=== PATIENT | male | born 1955 | race Caucasian/White ===

== ENCOUNTER 2018-06-11 11:11 | Emergency (ER) | payer OTHER, BC ==
--- NOTE | 2018-06-11 12:02 | EDM.PDOC ---
ED HPI GENERAL MEDICAL PROBLEM - General Chief Complaint: Laceration Stated Complaint: RIGHT PINKY LAC Time Seen by Provider: 06/11/18 11:36 Source of Information: Reports: Patient History Limitations: Reports: No Limitations - History of Present Illness INITIAL COMMENTS - FREE TEXT/NARRATIVE: 63-year-old male presents for evaluation and treatment of a laceration to the right volar distal pinky. Injury occurred prior to arrival in the ER. Patient reports that his hand was kicked by a bull and it was pinned between a the bull and a gate. He has a laceration to the right distal fifth finger pad. He has good range of motion and denies any numbness or tingling. Unsure of last tetanus. Onset: Today Location: Reports: Upper Extremity, Right Right Hand Pain Score (Numeric/FACES): 3 - Related Data Allergies Allergy/AdvReac Type Severity Reaction Status Date / Time No Known Allergies Allergy Verified 06/11/18 11:20 Home Meds: Home Meds Aspirin 81 mg PO DAILY 06/11/18 [History] Ciprofloxacin HCl [Cipro] 500 mg PO BID #14 tablet 06/11/18 [Rx] Doxycycline [Vibramycin] 100 mg PO BID #20 cap 06/11/18 [Rx] Finasteride [Proscar] 5 mg PO DAILY 06/11/18 [History] metFORMIN [Glucophage XR] 500 mg PO DAILY 06/11/18 [History] Past Medical History HEENT History: Reports: Impaired Vision Endocrine/Metabolic History: Reports: Diabetes, Type II Social & Family History - Tobacco Use Smoking Status *Q: Never Smoker - Caffeine Use Caffeine Use: Reports: Coffee - Recreational Drug Use Recreational Drug Use: No ED ROS GENERAL - Review of Systems Review Of Systems: See Below Skin: Reports: Wound (right 5th finger) Neurological: Denies: Numbness, Tingling ED EXAM, SKIN/RASH Exam: See Below Exam Limited By: No Limitations General Appearance: Alert, WD/WN, No Apparent Distress Nose: Normal Inspection Throat/Mouth: Normal Inspection, Normal Voice, No Airway Compromise Respiratory/Chest: No Respiratory Distress Cardiovascular: Normal Peripheral Pulses Peripheral Pulses: 2+: Radial (L) Neurological: Alert, Oriented, Normal Cognition Psychiatric: Normal Affect, Normal Mood Skin: Warm, Dry, Normal Color, Wound/Incision (3cm subcutantous laceration to the right hand distal 5th finger and a 2 1cm laceration to the right distal volar finger over the DIP ) Location, Skin: Upper Extremity, Right Associated features: Swelling ED SKIN PROCEDURES - Laceration/Wound Repair Right Distal Digit - 5th (Baby) Lac/Wound length In cm: 3 Appearance: Subcutaneous, Irregular Distal NVT: Neuro & Vascular Intact, No Tendon Injury Anesthetic Type: Digital Local Anesthesia - Lidocaine (Xylocaine): 1% Plain Local Anesthetic Volume: 5cc Skin Prep: Chlorhexidine (Hibiciens), Saline, Sterile Drape Saline Irrigation (cc's): 200 Exploration/Debridement/Repair: Wound Explored, No Foreign Material Found Closed with: Sutures Suture Size: 4-0 # of Sutures: 20 Suture Type: Nylon, Interrupted, Simple Sterile Dressing Applied: Nurse Tetanus Status Addressed: Yes Complications: No Course - Vital Signs Last Recorded V/S: Last Vital Signs Temp 97.8 F 06/11/18 11:18 Pulse 79 06/11/18 11:18 Resp 16 06/11/18 11:18 BP 154/84 H 06/11/18 11:18 Pulse Ox 98 06/11/18 11:18 - Orders/Labs/Meds Orders: Active Orders 24 hr Category Date Time Status Vaccines to be Administered [RC] PER UNIT ROUTINE Care 06/11/18 11:48 Active Meds: Medications Discontinued Medications Generic Name Dose Route Start Last Admin Trade Name Leonardo PRN Reason Stop Dose Admin Cefazolin Sodium 1,000 mg 06/11/18 12:36 06/11/18 14:15 Ancef IM 06/11/18 12:37 Not Given ONETIME ONE Cefazolin Sodium 1 gm 06/11/18 13:04 06/11/18 14:11 Ancef IM 06/11/18 13:05 1 gm ONETIME STA Administration Diphtheria/Tetanus/Acell Pertussis 0.5 ml 06/11/18 11:48 06/11/18 12:20 Adacel IM 06/11/18 11:49 0.5 ml .ONCE ONE Administration Lidocaine HCl 50 ml 06/11/18 11:49 06/11/18 12:25 Xylocaine 1% INJECT 06/11/18 11:50 50 ml ONETIME ONE Administration - Radiology Interpretation Free Text/Narrative:: xray of the right fifth finger shows a nondisplaced fracture of the distal phalnex. - Re-Assessments/Exams Free Text/Narrative Re-Assessment/Exam: 06/11/18 13:54 20 sutures placed to the right hand fifth finger. Patient tolerated well. Discussed with Dr. Richard, recommended giving Ancef here in the ED. Discharge and with doxycycline and ciprofloxacin. Given 1 g IM Ancef and start Ciprofloxin Doxy to cover for atypical bacteria seen with livestock. Tubegauz and will form splints replaced by nursing staff. Discharge instructions as documented. Departure - Departure Time of Disposition: 13:54 Disposition: Home, Self-Care 01 Condition: Fair Clinical Impression: Laceration, Fracture - Discharge Information *PRESCRIPTION DRUG MONITORING PROGRAM REVIEWED*: No *COPY OF PRESCRIPTION DRUG MONITORING REPORT IN PATIENT DELORES: No Prescriptions: Ciprofloxacin HCl [Cipro] 500 mg PO BID #14 tablet Doxycycline [Vibramycin] 100 mg PO BID #20 cap Instructions: Laceration Care, Adult Referrals: Silvana Gaytan PA [Primary Care Provider] - Harmeet Foreman MD [Physician] - Forms: ED Department Discharge Additional Instructions: wash the wound with gentle soap and water twice a day. Doxycycline 1 Twice a day for 10 days. ciprofloxacin 1 cap Twice a day for 7 days. Take these medications with food. Recommend a probiotic. These are available [id number]. Keep the wound covered. Wear the splint at all times. Have the sutures removed in about 10 days. the [facility] clinic located on the side of the hospital is open 8 AM to 5 PM Friday through Friday to remove the sutures for free. Call [phone] to schedule the provider there. Follow-up with Dr. Foreman within 2 weeks. Call [phone] to schedule with him. [id number] Tylenol or Motrin as needed for pain relief. Please return to ER if her symptoms change or worsen. - My Orders Last 24 Hours: My Active Orders 06/11/18 11:48 Vaccines to be Administered [RC] PER UNIT ROUTINE - Assessment/Plan Last 24 Hours: My Active Orders 06/11/18 11:48 Vaccines to be Administered [RC] PER UNIT ROUTINE
[2018-06-11] MEDS: Diphtheria,Pertussis(Acell),Tetanus Vaccine 0.5 ML SDV IM ONE (12:20)
[2018-06-11] MEDS: Lidocaine 1% 50 ML MDV INJECT ONE (12:25)
[2018-06-11] MEDS: ceFAZolin 1 GM Vial IM STA (14:11)
[2018-06-11] MEDS: ceFAZolin 1,000 MG VIAL IM ONE (14:15)
--- NOTE | 2018-06-11 15:09 | CR ---
Right fifth finger: Four view centered to the right fifth finger were obtained. Soft tissue injury is seen. Mild degenerative change is noted within the DIP joint. Small amount of debris is seen within the soft tissues of the distal fifth finger and please correlate if this is within the soft tissue wound or outside the skin. No acute fracture or other abnormality is seen. Impression: 1. Soft tissue injury with radiopacities as described above. 2. No acute bony abnormality is appreciated. Diagnostic code #3
== END 2018-06-11 14:30 | disposition home or self-care (01) ==
LOC: JD.ED 11:11
DX: S62.666A Nondisplaced fracture of distal phalanx of right little finger, initial encounter for closed fracture (principal); S61.216A Laceration without foreign body of right little finger without damage to nail, initial encounter; Z79.82 Long term (current) use of aspirin; Z79.899 Other long term (current) drug therapy; Z79.84 Long term (current) use of oral hypoglycemic drugs; Z23 Encounter for immunization; W55.22XA Struck by cow, initial encounter
CPT/HCPCS: 12002; 73140-26-F9; 73140-F9; 90471; 90715; 96372; 99283-25; J0690

== ENCOUNTER 2021-09-18 08:22 | Emergency (ER) | payer BC, MEDICARE, OTHER ==
[2021-09-18] MEDS ORDERED: HYDROmorphone 0.5 MG/0.5 ML Syringe IVPUSH ONE ×2 (08:45)
--- NOTE | 2021-09-18 08:45 | EDM.PDOC ---
ED HPI GENERAL MEDICAL PROBLEM - General Chief Complaint: Upper Extremity Injury/Pain Stated Complaint: SANTANA AMB Time Seen by Provider: 09/18/21 08:40 - History of Present Illness INITIAL COMMENTS - FREE TEXT/NARRATIVE: 66-year-old male presents the emergency room with a right upper extremity injury. 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 Patient did not hit his head there was no loss of consciousness. Patient denies any other injury with this most unfortunate event. Patient has a significant history of congestive heart failure but this is not causing him any problems at this point. Right Upper Arm Pain Score (Numeric/FACES): 3 - Related Data Allergies Allergy/AdvReac Type Severity Reaction Status Date / Time No Known Allergies Allergy Verified 06/11/18 11:20 Home Meds: Home Meds Aspirin 81 mg PO DAILY 06/11/18 [History] Finasteride [Proscar] 5 mg PO DAILY 06/11/18 [History] metFORMIN [Glucophage XR] 500 mg PO DAILY 06/11/18 [History] Hydrocodone/Acetaminophen [HYDROcodone-Acetaminophen 5-325 MG] 1 - 2 each PO Q6H PRN #20 tab 09/18/21 [Rx] Rosuvastatin [Crestor] 0 mg PO DAILY 09/18/21 [History] Sacubitril/Valsartan [Entresto 24 mg-26 mg Tablet] 1 tab PO BID 09/18/21 [History] Tamsulosin HCl [Flomax] 0.4 mg PO DAILY 09/18/21 [History] carvediloL [Carvedilol] 3.125 mg PO BID 09/18/21 [History] Past Medical History HEENT History: Reports: Impaired Vision Endocrine/Metabolic History: Reports: Diabetes, Type II Social & Family History - Caffeine Use Caffeine Use: Reports: Coffee ED ROS GENERAL - Review of Systems Review Of Systems: See Below Constitutional: Reports: No Symptoms HEENT: Reports: No Symptoms Respiratory: Reports: No Symptoms Cardiovascular: Reports: No Symptoms GI/Abdominal: Reports: No Symptoms Musculoskeletal: Reports: Other (Shoulder pain) Neurological: Reports: No Symptoms ED EXAM, GENERAL - Physical Exam Exam: See Below Exam Limited By: No Limitations General Appearance: Alert, Other (He is noticeably uncomfortable) Head: Atraumatic, Normocephalic Neck: Normal Inspection, Supple, Non-Tender, Full Range of Motion. No: Lymphadenopathy (L), Lymphadenopathy (R), Tender Lateral, Tender Midline Respiratory/Chest: No Respiratory Distress, Lungs Clear, Normal Breath Sounds (Current they will), Chest Non-Tender Cardiovascular: Regular Rate, Rhythm (Some of them are male), No Edema, No Murmur GI/Abdominal: Normal Bowel Sounds, Soft, Non-Tender, Pelvis Stable Back Exam: Normal Inspection. No: CVA Tenderness (L), CVA Tenderness (R) Extremities: Other (Extremity is nontender both lower extremities are normal) Neurological: Alert, Oriented, Normal Cognition Skin Exam: Warm, Dry, Intact Course - Vital Signs Last Recorded V/S: Last Vital Signs Temp 36.2 C 09/18/21 08:25 Pulse 64 09/18/21 12:18 Resp 15 09/18/21 12:18 BP 96/49 L 09/18/21 12:18 Pulse Ox 100 09/18/21 12:18 - Orders/Labs/Meds Orders: Active Orders 24 hr Category Date Time Status Shoulder 1V Rt [CR] Routine Exams 09/18/21 Taken Meds: Medications Discontinued Medications Generic Name Dose Route Start Last Admin Trade Name Freq PRN Reason Stop Dose Admin Fentanyl 100 mcg 09/18/21 11:20 09/18/21 11:20 Fentanyl 100 Mcg/2 Ml Sdv IVPUSH 09/18/21 11:21 50 mcg ONETIME ONE Administration Fentanyl 50 mcg 09/18/21 12:23 09/18/21 12:05 Fentanyl 100 Mcg/2 Ml Sdv IVPUSH 09/18/21 12:24 50 mcg ONETIME ONE Administration Hydromorphone HCl 0.5 mg 09/18/21 08:45 09/18/21 08:50 Hydromorphone 0.5 Mg/0.5 Ml Syringe IVPUSH 09/18/21 08:46 0.5 mg ONETIME ONE Administration Hydromorphone HCl 0.5 mg 09/18/21 08:45 09/18/21 09:03 Hydromorphone 0.5 Mg/0.5 Ml Syringe IVPUSH 09/18/21 08:46 0.5 mg ONETIME ONE Administration Propofol 100 mg 09/18/21 11:53 09/18/21 12:10 Propofol 200 Mg/20 Ml Sdv IVPUSH 09/18/21 11:54 200 mg ONETIME ONE Administration - Re-Assessments/Exams Free Text/Narrative Re-Assessment/Exam: 09/18/21 12:44 Careful screening exam does not show any other areas of tenderness. He has some numbness in his right hand but this is a chronic come and go state as he has chronic neck problems. Palpation of the upper extremity is tender in the vicinity of the mid humerus on up to the shoulder. He has some sort of deformity with his body habitus is hard to know if this is a midshaft injury to the humerus or shoulder injury. X-rays of the shoulder show an anterior dislocated shoulder there is no obvious humerus fracture or forearm fracture. The patient was very cooperative I attempted external rotation and could not get the patient to fully relax. The procedure was assisted with Dr. Mccain and who administered propofol in addition to the fentanyl. Satisfactory relaxation and sedation was achieved and using distraction and external rotation the shoulder popped back into place x- rays were obtained which show good placement of the shoulder. 09/18/21 12:49 Just checked on the patient he is feeling better he is resting comfortably the numbness that he had in his hand has resolved. 09/18/21 13:40 Patient is doing really well at this time we will discharge home Departure - Departure Time of Disposition: 13:40 Disposition: Home, Self-Care 01 Clinical Impression: Dislocation of shoulder, anterior, right, closed - Discharge Information Referrals: PCP,None [Primary Care Provider] - Harmeet Foreman MD [Physician] - Forms: ED Department Discharge Additional Instructions: Return to the emergency room with any questions problems or worsening symptoms if you develop numbness that does not get better with repositioning your arm return to the emergency room. Wear the sling at all times. Follow-up with Dr. Foreman, the orthopedic surgeon here in [facility] next week. I have sent a prescription to the [place] pharmacy for hydrocodone. Use this only if needed for pain control. Try regular Tylenol first. Watch your total Tylenol dosage and keep track of it. Do not let it exceed 4000 mg in a 24-hour. Each of the pain pills I prescribed for you contain 325 mg of Tylenol. Today you were seen with a right shoulder and arm injury. X-rays were taken this revealed an anterior dislocation of the shoulder. You received some sedation and pain control so we could adequately reduce this. Follow-up x-rays showed satisfactory reduction of the anterior dislocation your shoulder. You are now advised to keep your arm in a sling avoid work follow-up with orthopedics next week. Sepsis Event Note (ED) - Focused Exam Vital Signs: Vital Signs Temp Pulse Resp BP Pulse Ox 09/18/21 12:18 64 15 96/49 L 100 09/18/21 12:15 61 12 128/39 L 100 09/18/21 12:08 57 L 11 L 104/59 L 100 09/18/21 08:25 36.2 C 53 L 16 129/76 100 - My Orders Last 24 Hours: My Active Orders 09/18/21 Shoulder 1V Rt [CR] Routine - Assessment/Plan Last 24 Hours: My Active Orders 09/18/21 Shoulder 1V Rt [CR] Routine
--- NOTE | 2021-09-18 10:10 | CR ---
Right shoulder: Single AP view of the right shoulder was obtained. Comparison: No prior shoulder study is available. Anterior subcoracoid dislocation is noted. Bony density and spurring is noted off the glenoid which most likely represents degenerative change and old injury. Degenerative change is also noted within the acromioclavicular joint. Impression: 1. Anterior dislocated right shoulder. 2. Findings presumably due to old injury and degenerative change. Diagnostic code #3
--- NOTE | 2021-09-18 10:10 | CR ---
Right forearm: AP and lateral views of the right forearm were obtained. Comparison: No prior forearm study is available. Spur is noted off the olecranon process. Incidental cyst is noted within the distal ulna. No acute fracture or subluxation is seen. Impression: 1. Findings as noted above. No acute abnormality is appreciated on right forearm study. Diagnostic code #2
--- NOTE | 2021-09-18 10:10 | CR ---
Right humerus: AP and lateral views of the right humerus were obtained. Comparison: No prior humerus study is available. Anterior subcoracoid dislocation is seen. Deformity of the glenoid is noted which most likely is due to old injury. Degenerative change is also seen within the acromioclavicular joint. No definite acute fracture or other abnormality is appreciated. Impression: 1. Anterior dislocated right shoulder. 2. Deformity of the glenoid presumably representing old injury. 3. Mild degenerative change is also noted. Diagnostic code #3
[2021-09-18] MEDS ORDERED: fentaNYL 100 MCG/2 ML SDV IVPUSH ONE ×2 (11:20→12:23)
[2021-09-18] MEDS ORDERED: Propofol 200 MG/20 ML SDV IVPUSH ONE (11:53)
--- NOTE | 2021-09-18 12:07 | CR ---
Right shoulder: Frontal view of the right shoulder was obtained. Comparison: Prior shoulder study performed earlier on the same day (9:07 AM). Continuing dislocation is seen in an anterior direction. Other findings within the shoulder appear stable. Prior cervical spine surgery is also noted. Impression: 1. Continuing dislocation of the right shoulder. 2. Other findings as noted above which appear chronic. Diagnostic code #3
--- NOTE | 2021-09-18 16:45 | CR ---
Right shoulder: AP view of the right shoulder was obtained. Comparison: Previous right shoulder study performed earlier on the same day (11:50 AM). Previous dislocation has been reduced. This study shows a lucent line involving the glenoid and extending into the scapula which may represent a fracture which was obscured due to the humerus on prior study. Degenerative change is seen within the acromioclavicular joint. Deformity is partially seen within the glenoid which appears chronic. Impression: 1. Previous dislocation has been reduced. 2. Equivocal nondisplaced fracture within the glenoid extending into the scapula. 3. Other chronic findings as noted above. Diagnostic code #3 MTDD
--- NOTE | 2021-09-19 17:27 | PCM.SN.2 ---
Time Documentation ED PROCEDURAL SEDATION - Pre Procedure Indications: shoulder dislocation Preparations: procedure explained, consent signed, oxygen, continuous pulse oximeter, suction, continuous gambling monitor, constant attendance - Physical Exam Airway: normal anatomy Cardiovascular: normal heart sounds Respiratory: normal breath sounds Neurological: alert, responsive, moderate distress Mallampati Classification: 1 (soft palate, anterior/posterior tonsillar pillars, uvula visible) - Procedure Sedation Procedural Sedation Start Date: 09/18/21 Procedural Sedation Start Time: 11:20 Sedation: propofol ASA Classification: 2 (Patient with a mild systemic disease) - Intra Procedure Condition during procedure: moderately sedated Complications: none Reversal: none - Post Procedure Procedural Sedation End Date: 09/18/21 Procedural Sedation End Time: 11:30 Condition after procedure: alert, NAD, responds to verbal stimuli - Discharge Condition Patient returned to pre-procedure baseline: Yes Alert prior to discharge: Yes Ambulatory with assistance: Yes Vital signs normal: Yes Time spent with sedated patient: 20 min
== END 2021-09-18 14:20 | disposition home or self-care (01) ==
LOC: JD.ED 08:22
DX: S43.014A Anterior dislocation of right humerus, initial encounter (principal); E11.9 Type 2 diabetes mellitus without complications; Z79.82 Long term (current) use of aspirin; Z79.84 Long term (current) use of oral hypoglycemic drugs; W55.22XA Struck by cow, initial encounter; Y99.0 Civilian activity done for income or pay
CPT/HCPCS: 73020; 73060; 73090; 96374; 96375; 96376; 99284; J1170; J2704; J3010